=== PATIENT | male | born 1970 | race Caucasian/White ===

== ENCOUNTER 2021-12-08 09:36 | Day surgery (SDC) | payer OTHER ==
[~2021-12-08] VITALS: Ht 182.9 cm; Wt 107.5 kg
[2021-12-08] MEDS ORDERED: fentaNYL citrate 0.05 MG/ML VIAL ONE ×2 (11:36)
[2021-12-08] MEDS ORDERED: diphenhydrAMINE 50 MG/ML VIAL ONE (11:36)
[2021-12-08] MEDS ORDERED: MIDAZOLAM 5 MG/5 ML VIAL ONE (11:37)
[2021-12-08] MEDS ORDERED: MIDAZOLAM 2 MG/2 ML VIAL IVP ONE (14:40)
[2021-12-08] MEDS ORDERED: diphenhydrAMINE 50 MG/ML VIAL IVP ONE (14:40)
[2021-12-08] MEDS ORDERED: fentaNYL citrate 0.05 MG/ML VIAL IVP ONE (14:40)
== END 2021-12-08 12:37 | disposition home or self-care (01) ==
LOC: MDS 09:36 → MMU 09:37 → MDS 12:37
PROVIDERS: ATTEND Internal Medicine Gastroenterology
DX: Z43.1 Encounter for attention to gastrostomy (principal); K27.3 Acute peptic ulcer, site unspecified, without hemorrhage or perforation; Z20.822 Contact with and (suspected) exposure to COVID-19; Z86.711 Personal history of pulmonary embolism; Z86.718 Personal history of other venous thrombosis and embolism
CPT/HCPCS: 43247; 87426; J1200; J2250; J3010